=== PATIENT | male | born 2000 | race Caucasian/White ===

== ENCOUNTER 2022-05-17 15:09 | Emergency (ER) | payer OTHER, MEDICAID, SELFPAY ==
[2022-05-17 15:14] VITALS: BP 150/85; PULSE 110; RESP 16; TEMP 36.8; O2SAT 100
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
[2022-05-17] MEDS: HALOPERIDOL LACTATE 5 MG/ML VIAL IM (16:03)
[2022-05-17] MEDS: LORazepam INJ (*CRX) 2 MG/ML VIAL 1 MG IM (16:03)
[2022-05-17 17:13] LABS: Basophils Absolute Auto 0.1 K/mm3 (0.0-0.1); Basophils Percent Auto 0.8 % (0.2-1.2); Eosinophils Absolute Auto 0.4 K/mm3 (0-0.3); Eosinophils Percent Auto 4.9 % (0-4.4); Hematocrit 43.8 % (42.0-52.0); Hemoglobin 14.3 g/dL (14.0-18.0); Immature Granulocyte Absolute 0.01 K/mm3 (0.00-0.031); Immature Granulocyte Percent A 0.1 % (0-0.5); Lymphocytes Absolute Auto 3.62 K/mm3 (0.9-3.2); Lymphocytes Percent Auto 45.4 % (18.3-44.2); Mean Corpuscular HGB Conc 32.6 g/dl (32-36); Mean Corpuscular Volume 88.8 fl (80-100); Mean Platelet Volume 8.6 fl (7.4-10.4); Monocytes Absolute Auto 0.7 K/mm3 (0.1-0.6); Monocytes Percent Auto 8.2 % (2.6-8.5); Neutrophils Absolute Auto 3.2 K/mm3 (1.3-6.7); Neutrophils Percent Auto 40.6 % (45.5-73.1); Platelet Count Result 284 k/mm3 (150-375); Red Blood Count 4.93 M/mm3 (4.6-6.20); Red Cell Distribution Width 12.4 % (11.5-14.5)
[2022-05-17 17:23] LABS: Ethanol < 10 mg/dL (<10)
[2022-05-17 17:24] LABS: Alanine Aminotransferase 30 U/L (6-50); Albumin Level 4.8 g/dL (3.5-5.1); Alkaline Phosphatase 83 U/L (38-126); Anion Gap 6 mmol/L (8-16); Aspartate Amino Transferase 36 U/L (17-59); Bilirubin,Total 0.3 mg/dL (0.2-1.3); Blood Urea Nitrogen 11 mg/dL (9-20); Calcium 9.1 mg/dL (8.4-10.2); Carbon Dioxide 28 mmol/L (22-30); Chloride 106 mmol/L (98-107); Estimated CRCL calculation 102 ml/min; Estimated Glomerular Filt Rate > 60; Glucose 87 mg/dL (65-110); Sodium 140 mmol/L (137-145)
[2022-05-17 17:31] LABS: Appearance Urine Clear (Clear); Bilirubin Urine Negative (Negative); Blood Urine Negative (Negative); Color Urine Yellow (Yellow); Glucose Urine UA Negative (Negative); Ketones Urine Negative (Negative); Leukocyte Esterase Ur Negative LEU/UL (Negative); Nitrate Urine Negative (Negative); Protein Urine Negative (Negative); Specific Grav Ur <= 1.005 (1.001-1.035); Urobilinogen Urine 0.2 mg/dL (<2.0)
[2022-05-17 17:40] LABS: Amphetamine Screen Urine Negative (Negative); Barbiturate Screen Urine Negative (Negative); Benzodiazepines Screen Urine Negative (Negative); Cannabinoid Screen Urine Negative (Negative); Cocaine Screen Urine Negative (Negative); Methadone Screen Urine Negative (Negative); Opiate Screen Urine Negative (Negative); Phencyclidine Screen Urine Negative (Negative)
[2022-05-17 17:48] LABS: Add Urine Microscopic? NO
--- NOTE | 2022-05-17 19:55 | PC.NURSE ---
Vivian from [facility] called this RN to inform me that they will not have a room for this pt tonight. We can try again tomorrow.
[2022-05-17 21:20] VITALS: PULSE 91; RESP 18; O2SAT 98
--- NOTE | 2022-05-18 08:56 | PC.NURSE ---
rosa isela in take at [facility] states there are no beds available at this time.
[2022-05-18 09:33] VITALS: BP 148/87; PULSE 85; RESP 14; O2SAT 97
[2022-05-18 10:19] LABS: SARS-CoV-2 RNA PCR Negative
--- NOTE | 2022-05-18 10:59 | PC.NURSE ---
Alley reports [facility] cannot accept pt. at this time.
--- NOTE | 2022-05-18 11:17 | PC.NURSE ---
Care assumed of pt at this time.
--- NOTE | 2022-05-18 11:56 | PC.NURSE ---
Per Alley at [facility] will accept a referral, originally stated they wanted an IQ but pt has never had IQ testing done. Pt father is aware that [facility] may deflect.
--- NOTE | 2022-05-18 12:46 | PC.NURSE ---
[facility] deflected pt d/t acuity
--- NOTE | 2022-05-18 13:16 | PC.NURSE ---
Spoke with Alley at [facility]. pt father Trey states he is going to take pt home d/t lack of capacity to treat . ERP Tricia aware.
== END 2022-05-18 13:46 | disposition home or self-care (01) ==
PROVIDERS: Emergency Medicine; Emergency Provider Emergency Medicine; PCP Family Medicine Adolescent Medicine
DX: F84.0 Autistic disorder (principal); R45.6 Violent behavior; Z20.822 Contact with and (suspected) exposure to COVID-19
CPT/HCPCS: 36415; 80053; 80307; 81003; 84443; 85025; 96372; 99284; C9803; J1630; J2060; U0003; U0005